=== PATIENT | male | born 1970 | race Caucasian/White ===

== ENCOUNTER 2022-09-15 08:37 | Emergency (ER) | payer OTHER ==
[2022-09-15 09:06] VITALS: BP 133/83; PULSE 78; RESP 18; TEMP 98; BMI 27.3
[2022-09-15] MEDS ORDERED: KETOROLAC TROMETHAMINE 30 MG/1 ML VIAL IM ONE (09:21)
[2022-09-15] MEDS ORDERED: METHOCARBAMOL 500 MG TABLET PO ONE (09:21)
[2022-09-15] MEDS ORDERED: LIDOCAINE 5% TOPICAL PATCH TP ONE (09:21)
[2022-09-15] MEDS ORDERED: LIDOCAINE 5% TOPICAL PATCH ONE (09:23)
[2022-09-15] MEDS ORDERED: METHOCARBAMOL 500 MG TABLET ONE (09:23)
[2022-09-15] MEDS ORDERED: KETOROLAC TROMETHAMINE 30 MG/1 ML VIAL ONE (09:23)
== END 2022-09-15 10:20 | disposition home or self-care (01) ==
LOC: JER 08:37 → JERFT 08:37
PROC: 3E023GC Introduction of Other Therapeutic Substance into Muscle, Percutaneous Approach (ICD-10-PCS; principal; 2022-09-15)
DX: M54.50 Low back pain, unspecified (principal); V49.40XA Driver injured in collision with unspecified motor vehicles in traffic accident, initial encounter
CPT/HCPCS: 72100-TC-FY; 99284-25